=== PATIENT | male | born 1985 | race Caucasian/White ===

== ENCOUNTER 2020-07-20 07:52 | Day surgery (SDC) | payer MEDICAID ==
[2020-07-10 09:44] LABS: BASOPHILS % (AUTO) 0.6 % (0-1); EOSINOPHILS # (AUTO) 0.1 X10'3 (0-0.9); EOSINOPHILS % (AUTO) 2.1 % (0-6); LYMPHOCYTES # (AUTO) 2.4 X10'3 (1.1-4.8); LYMPHOCYTES % (AUTO) 42.3 % (21-51); MEAN CORPUSCULAR HEMOGLOBIN 27.9 PG (27.0-31.0); MEAN CORPUSCULAR HGB CONC 33.5 g/dL (33.0-36.5); MEAN CORPUSCULAR VOLUME 83.3 FL (78-98); MEAN PLATELET VOLUME 7.4 FL (7.4-10.4); MONOCYTES # (AUTO) 0.7 X10'3 (0-0.9); MONOCYTES % (AUTO) 12.1 % (2-12); NEUTROPHILS # (AUTO) 2.5 X10'3 (1.8-7.7); NEUTROPHILS % (AUTO) 42.9 % (42-75); PRE OP HEMATOCRIT 44.7 % (42.0-52.0); PRE OP PLATELET COUNT 257 X10'3 (140-440); RED BLOOD COUNT 5.36 X10'6 (4.70-6.10); RED CELL DISTRIBUTION WIDTH 13.5 % (11.5-14.5)
[2020-07-10 09:49] LABS: ALBUMIN 4.1 G/DL (3.4-5.0); ALBUMIN/GLOBULIN RATIO 1.3 (1.1-1.5); ALKALINE PHOSPHATASE 107 IU/L (46-116); BLOOD UREA NITROGEN 28 MG/DL (7-18); BUN/CREATININE RATIO 17.8 (5.4-32.0); CALCIUM 9.1 MG/DL (8.5-10.1); CHLORIDE 105 MMOL/L (99-107); CREATININE 1.57 MG/DL (0.60-1.10); PRE OP ALT 58 U/L (30-65); PRE OP ANION GAP 7 (8-16); PRE OP AST 29 U/L (10-37); PRE OP BILIRUB, TOTAL 0.2 MG/DL (0.0-1.0); PRE OP GLUCOSE 89 MG/DL (70-104); PRE OP POTASSIUM 4.4 MMOL/L (3.4-5.1); PRE OP SODIUM 141 MMOL/L (135-145); TOTAL CARBON DIOXIDE 28.7 MMOL/L (24-32); TOTAL PROTEIN 7.2 G/DL (6.4-8.2); eGFR 51 ML/MIN
[2020-07-20] VITALS (7 sets, daily range): BP systolic 130–145; BP diastolic 76–95
[~2020-07-20] VITALS: Ht 170.2 cm; Wt 77.1 kg
[~2020-07-20 07:52] MED LIST: ACET-2971 PO; AMIT25TA9 PO; BAC10T PO; BUPIVAcaine/PF 2.5mg/ml (0.25%) 10ml vial ONE; BUPR-72 PO; BUPR1TAB PO; GABA-338 PO; HYDR-3927 PO; IBUP-1986 PO; ceFAZolin 2gm in dextrose, iso 50 ML IV ONE; famotidine 20mg tablet PO ONE; ringers solution, lacted 1,000 ML IV SCH
[2020-07-20] MEDS ORDERED: BUPIVAcaine/PF 2.5mg/ml (0.25%) 10ml vial ONE (10:19)
[2020-07-20] MEDS ORDERED: midazolam 2 mg/2 ml injection ONE (10:24)
[2020-07-20] MEDS ORDERED: fentaNYL/PF 50MCG/1 ML 2ML syringe ONE ×2 (10:24→10:45)
[2020-07-20] MEDS ORDERED: sevoflurane 250ml liquid IH ONE (10:31)
[2020-07-20] MEDS ORDERED: ondansetron/PF 4mg/2ml inj ONE ×2 (10:58→11:11)
[2020-07-20] MEDS ORDERED: propofol inj 20 ML IV ONE (10:58)
[2020-07-20] MEDS ORDERED: LIDOcaine 2% (20mg/ml) 5ml vial ONE (10:58)
[2020-07-20] MEDS ORDERED: glycopyrrolate 0.2mg/ml inj ONE (11:11)
--- NOTE | 2020-07-20 11:20 | NUR ---
Received from OR via , accompanied by Anesthesiologist DR TOBAR and report given by Anesthesiolgist. AWAKENS TO VOICE. VITALS STABLE. DRESSINGS DI. ANURAG PAIN. FINGERS COOL AND PINK.
[2020-07-20] MEDS ORDERED: ringers solution, lacted 1,000 ML IV SCH (11:50)
[2020-07-20] MEDS ORDERED: meperidine/PF 25mg/ml syringe ONE (11:50)
[2020-07-20] MEDS ORDERED: ondansetron/PF 4mg/2ml inj IV PRN (11:50)
[2020-07-20] MEDS ORDERED: meperidine/PF 25mg/ml syringe IV PRN ×3 (11:50)
[2020-07-20] MEDS ORDERED: morphine 4 MG/ML inj SYRINge IV PRN (11:50)
[2020-07-20] MEDS ORDERED: morphine 2 MG/ML inj. syringe IV PRN (11:50)
[2020-07-20] MEDS ORDERED: proCHLORperazine 10 MG/2 ml inj IV PRN (11:50)
[2020-07-20] MEDS ORDERED: traMADol 50MG tablet PO ONE (11:55)
--- NOTE | 2020-07-20 12:20 | NUR ---
AWAKE AND ORIENTED. VITALS STABLE. DRESSINGS DI. STATES PAIN IMPROVING. HOME WITH HIS BROTHER AT THIS TIME.
== END 2020-07-20 12:20 | disposition home or self-care (01) ==
LOC: PAS 07:52
PROVIDERS: ATTEND Orthopaedic Surgery Hand Surgery
DX: G56.03 Carpal tunnel syndrome, bilateral upper limbs (principal); G43.909 Migraine, unspecified, not intractable, without status migrainosus; F17.210 Nicotine dependence, cigarettes, uncomplicated; F41.9 Anxiety disorder, unspecified; F19.10 Other psychoactive substance abuse, uncomplicated; Z72.89 Other problems related to lifestyle; Z79.899 Other long term (current) drug therapy; Z20.828 Contact with and (suspected) exposure to other viral communicable diseases
CPT/HCPCS: 29848; 36415; 80053; 82948; 85025; 87635; J2001; J2175; J2250; J2405; J2704; J3010; J3490; A4215; A7000; J7120